=== PATIENT | female | born 1990 | race African-American/Black ===

== ENCOUNTER 2018-04-27 10:43 | Emergency (ER) | payer BC ==
[~2018-04-27] VITALS: Ht 170.2 cm; Wt 163.3 kg
== END 2018-04-27 11:29 | disposition home or self-care (01) ==
LOC: FSED 10:43
DX: J02.9 Acute pharyngitis, unspecified (principal)
CPT/HCPCS: 83518; 87400; 99283

== ENCOUNTER 2018-05-16 22:32 | Emergency (ER) | payer BC ==
[~2018-05-16] VITALS: Ht 170.2 cm; Wt 158.8 kg
[2018-05-16] MEDS ORDERED: CLINDAMYCIN HC150 MG PO (22:58)
[2018-05-17 00:24] VITALS: BP 138/81
== END 2018-05-16 23:23 | disposition home or self-care (01) ==
LOC: FSED 22:32
DX: K08.89 Other specified disorders of teeth and supporting structures (principal); K02.9 Dental caries, unspecified; I10 Essential (primary) hypertension
CPT/HCPCS: 93005

== ENCOUNTER 2018-08-19 08:52 | Emergency (ER) | payer SELFPAY ==
[~2018-08-19] VITALS: Ht 170.2 cm; Wt 158.8 kg
[~2018-08-19 08:52] MED LIST: CLINDAMYCIN HC150 MG PO
== END 2018-08-19 09:55 | disposition left against medical advice (07) ==
LOC: FSED 08:52
DX: M54.6 Pain in thoracic spine (principal)

== ENCOUNTER 2024-05-23 23:07 | Emergency (ER) | payer BC ==
[~2024-05-23] VITALS: Ht 170.2 cm; Wt 187.8 kg
[2024-05-23 23:14] VITALS: PULSE 88; RESP 18; TEMP 99.2
[2024-05-23] MEDS: DEXAMETHASONE SOD PHOS INJ 4 MG/ML SDV PO ONE (23:51)
[2024-05-23 23:55] VITALS: BP 133/95; PULSE 88; RESP 18; TEMP 99.2; O2SAT 98
== END 2024-05-23 23:55 | disposition home or self-care (01) ==
LOC: FSED 23:30
DX: R49.0 Dysphonia (principal); J02.9 Acute pharyngitis, unspecified; E66.01 Morbid (severe) obesity due to excess calories
CPT/HCPCS: 83518; 99282; J1100